=== PATIENT | male | born 1955 | race Caucasian/White ===

== ENCOUNTER 2021-04-18 10:52 | Outpatient (CLI) | payer MEDICARE, SELFPAY ==
[2021-04-18 12:47] LABS: Alanine Aminotransferase 11 U/L (0-41); Alkaline Phosphatase 71 IU/L (40-130); Anion Gap 10.1 (5-19); Aspartate Amino Transferase 14 U/L (0-40); Blood Urea Nitrogen 8 mg/dL (8-23); Calcium 8.8 mg/dL (8.5-10.5); Carbon Dioxide 27 mmol/L (22-29); Chloride 103 mmol/L (98-107); Cholesterol 161 mg/dL (0-200); Globulin 2.4 g/dL (1.3-4.6); Glomerular Filtration Rate 134.8 mL/min (90-130); Glucose 96 mg/dL (65-115); HDL Cholesterol 67 mg/dL (60-100); LDL Cholesterol Calculated 81 mg/dL (50-129); LDL HDL Ratio 1.21 RATIO (0.00-3.22); Osmolality Calculated 280 mOsm/kg (285-295); Potassium 4.1 mmol/L (3.5-5.1); Sodium 136 mmol/L (136-145); Total Bilirubin 0.6 mg/dL (0.15-1.2); Total Protein 6.4 g/dL (6.6-8.7); Triglycerides 63 mg/dL (0-150)
[2021-04-18 13:57] LABS: 25 Hydroxy Vitamin D 20 ng/mL (30-100)
== END 2021-04-18 10:53 | disposition home or self-care (01) ==
LOC: LAB 11:01
PROVIDERS: PCP Physician Assistant Medical; Visit Provider Physician Assistant Medical
DX: E55.9 Vitamin D deficiency, unspecified (principal); E78.5 Hyperlipidemia, unspecified; R35.1 Nocturia
CPT/HCPCS: 80053; 80061; 82306; 84153

== ENCOUNTER → 2021-05-07 16:14 | Outpatient (BNVA) | payer MEDICARE, SELFPAY | PROVIDERS: PCP Physician Assistant Medical; Visit Provider Urology | DX: R97.20 Elevated prostate specific antigen [PSA] (principal) | CPT/HCPCS: 84153 ==

== ENCOUNTER → 2021-05-22 15:04 | Outpatient (BNVA) | payer MEDICARE, SELFPAY | PROVIDERS: PCP Physician Assistant Medical; Visit Provider Urology | DX: R97.20 Elevated prostate specific antigen [PSA] (principal) | CPT/HCPCS: 88305 ==

== ENCOUNTER → 2021-06-12 11:55 | Outpatient (BNVA) | payer MEDICARE, SELFPAY | PROVIDERS: PCP Physician Assistant Medical; Visit Provider Internal Medicine | DX: Z01.812 Encounter for preprocedural laboratory examination (principal); R19.5 Other fecal abnormalities; Z20.822 Contact with and (suspected) exposure to COVID-19 | CPT/HCPCS: 87635 ==

== ENCOUNTER 2021-06-17 06:32 | Day surgery (SDC) | payer MEDICARE, SELFPAY ==
[2021-06-13 14:04] VITALS: BMI 22.5
[2021-06-17] MEDS: sodium chloride 0.9% 1,000 ML 30 ML IV (07:03)
[2021-06-17 07:06] VITALS: BP 138/85; PULSE 74; RESP 18; TEMP 36.9; O2SAT 97
--- NOTE | 2021-06-17 07:14 | ANES.PREANE2 ---
Pre-Anesthetic Assessment Pre-Anesthetic Assessment: Height/Weight: Height 1.73 m Weight 67.132 kg Temp Pulse Resp BP Pulse Ox 98.5 F 74 18 138/85 97 06/17/21 07:06 06/17/21 07:06 06/17/21 07:06 06/17/21 07:06 06/17/21 07:06 Preop Diagnosis: Positive cologuard Proposed Procedure: Operation Date: 06/17/21 07:30 Proposed Procedures p Colonoscopy 74423 R19.5(Not Applicable) - Roland Candelaria MD Familial anesthetic complications: none Was Beta Liz taken within 24 hours: N/A Was Clonidine taken within 24 hours: N/A Last intake: Intake Last Liquid Date 06/16/21 Last Liquid Time 23:15 Last Solid Date 06/15/21 Last Solid Time 23:30 Social: Social History: Alcohol (6pk day) and No tobacco Exam: Pre-Anes Outpt Exam: alert, oriented x 3, clear to auscultation bilaterally and regular rate & rhythm Airway: Submandibular: WNL Cervical ROM: WNL MP: 2 Dentition: Full Pulmonary: Pulmonary: Sleep apnea (CPAP) CV/HEM: CV/HEM: None reported : : None reported Hepatic: Hepatic: None reported GI: GI: None reported Metabolic: Metabolic: None reported Musc/skel: Musc/skel: Lower Back Pain and OA/DJD Neuropsych: Neuropsych: None reported Anesthetic Plan: ASA status: 2 Anesthesia: MAC Meds/Allergies Current Medications: Current Medications Generic Name Dose Route Start Last Admin Trade Name Freq PRN Reason Stop Dose Admin Sodium Chloride 1,000 mls @ 30 ml s/hr 06/17/21 06:45 06/17/21 07:03 Sodium Chloride 0.9% IV 30 mls/hr .Q24H ANDRADE Administration PFSH Anesthesia PFSH: Medical History Abnormal prostate exam Depression Elevated PSA Erectile dysfunction Hyperlipidemia Venous insufficiency Surgical History Hx of tonsillectomy Family History Mother , IN HER MID 60'S HEART ATTACK CAD (coronary artery disease) FATHER IN HIS MID 60'S NATURAL Social History Smoking and tobacco status: former smoker Alcohol intake: current Alcohol intake frequency: few times a week Marital status: Current occupational status: retired Data Anesthesia Cardiac Studies: No Data to Display
--- NOTE | 2021-06-17 07:16 | P.HP_ITS ---
Same Day Surgery H&P Indication for Procedure/HPI DATE OF PROCEDURE: June 17, 2021 CHIEF COMPLAINT/INDICATIONFOR SURGICAL PROCEDURE: Positive Cologuard PREOP DIAGNOSIS: Positive cologuard PLANNED PROCEDRUE: Operation Date: 06/17/21 07:30 Proposed Procedures p Colonoscopy 49538 R19.5(Not Applicable) - Roland Candelaria MD Medications/Allergies* Home Medications Medication Instructions Recorded Confirmed Type bupropion HCl 150 mg tablet,12 hr 150 mg PO QAM 04/30/21 06/13/21 History sustained-release fluticasone propionate 50 2 spray INTRANASAL DAILY 04/30/21 06/13/21 History mcg/actuation nasal spray,suspension tadalafil 5 mg tablet 5 mg PO DAILY 04/30/21 06/13/21 History Allergies/Adverse Reactions Allergy/AdvReac Type Severity Reaction Status Date / Time No Known Allergies Allergy Verified 06/10/21 09:13 Current Medications: Generic Name Dose Route Start Last Admin Trade Name Freq PRN Reason Stop Dose Admin Sodium Chloride 1,000 mls @ 30 mls/hr 06/17/21 06:45 06/17/21 07:03 Sodium Chloride 0.9% IV 30 mls/hr .Q24H ANDRADE Administration Pertinent History/Comorbid Conditions* Medical History (Updated 06/10/21 @ 09:45 by Rolnad Candelaria MD) Abnormal prostate exam Depression Elevated PSA Erectile dysfunction Hyperlipidemia Venous insufficiency Surgical History (Updated 05/07/21 @ 16:55 by León Francis MD) Hx of tonsillectomy Family History (Updated 05/07/21 @ 15:30 by DOLLY Bloom) Mother, IN HER MID 60'S HEART ATTACK CAD (coronary artery disease) Mother FATHER IN HIS MID 60'S NATURAL Social History Smoking and tobacco status: former smoker Alcohol intake: current Alcohol intake frequency: few times a week Marital status: Current occupational status: retired Pertinent Exam Findings alert, oriented x 3, clear to auscultation bilaterally, regular rate & rhythm, operative site marked and procedure specific exam findings Recommendations Surgery/Procedure today Coding Level of Care Code 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
[2021-06-17 08:03] VITALS: BP 97/61; PULSE 70; RESP 16; TEMP 36.6; O2SAT 99
[2021-06-17 08:11] VITALS: BP 112/71; PULSE 70; RESP 18; O2SAT 98
== END 2021-06-17 08:43 | disposition home or self-care (01) ==
PROVIDERS: PCP Physician Assistant Medical; Visit Provider Internal Medicine
PROC: 0DJD8ZZ Inspection of Lower Intestinal Tract, Via Natural or Artificial Opening Endoscopic (ICD-10-PCS; CPT 45378; principal; 2021-06-17 07:30)
DX: R19.5 Other fecal abnormalities (principal); G47.30 Sleep apnea, unspecified; Z87.891 Personal history of nicotine dependence
CPT/HCPCS: 45378; 96360; J2704; J7030

== ENCOUNTER 2021-06-25 07:31 | Outpatient (CLI) | payer MEDICARE, SELFPAY ==
--- NOTE | 2021-06-25 07:38 | CT_ITS ---
WS: [id number] CT ABDOMEN PELVIS TECHNIQUE: Noncontrast CT of the abdomen and contrast-enhanced CT of the abdomen and pelvis with paris nal and sagittal reformatted images. CLINICAL INFORMATION: PROSTATE CANCER COMPARISON: None. DLP: 1278.[address] scans at [facility] use at least one of these dose optimization techniques: automated e xposure control; mA and/or kV adjustment per patient size (includes targeted exams where dose is matc hed to clinical indication); or iterative reconstruction. FINDINGS: Lung bases are well aerated. Mild diffuse fatty infiltration of the liver. Normal portal vein and spl enic vein. Gallbladder is contracted. Adrenal glands are normal. Normal renal parenchymal enhancement . No hydronephrosis. Normal GE junction. Normal duodenal C-loop. Normal spleen. Normal caliber abdomi nal aorta with mild aortic calcification. Sigmoid diverticulosis. No evidence of acute diverticulitis. Urine distended bladder with mild wall thickening. Heterogeneous enhancing multinodular prostate rosanna uring 2.5 x 3.5 CM. Mild thickening of the seminal vesicles. No abdominal lymphadenopathy. No pelvic or inguinal lymphadenopathy. Normal ureteral excretion on the delayed images. Small cystocele. CT/CT abdomen pelvis wo/w [id number] IMPRESSION: 1. No evidence of metastatic disease in the abdomen or pelvis. 2. No abdominal pelvic or inguinal lymphadenopathy. 3. Heterogeneously enhancing prostate measuring 2.5 x 3.5 CM. Mild thickening of the seminal vesicles. No pelvic lymphadenopathy. 4. Mild diffuse fatty infiltration liver. 5. Urine distended bladder with mild wall thickening. Small cystocele. 6. Normal renal parenchymal enhancement and excretion.
--- NOTE | 2021-06-25 07:38 | NM_ITS ---
WS: [id number] NUCLEAR MEDICINE BONE SCAN Radiopharmaceutical: 24.6 Tc-99m MDP mCi IV Injection site: Right antecubital Postinjection imaging delay: 1 hr CLINICAL INFORMATION: PROSTATE CANCER COMPARISON: None. FINDINGS: Bone lesions: There are no osseous lesions suspicious for metastatic disease. Soft tissue contours: Normal. Kidneys: Normal. Other findings: Degenerative type uptake right AC joint, left tibial tuberosity, and both ankles. NM/NM bone scan whole body* [id number] IMPRESSION: No evidence of osseous metastatic disease.
[2021-06-25 08:22] LABS: Blood Urea Nitrogen 8 mg/dL (8-23); Glomerular Filtration Rate 166.4 mL/min (90-130)
[2021-06-25] MEDS: iohexol 300 mg/mL 100 mL Btl IV (08:50)
== END 2021-06-25 07:32 | disposition home or self-care (01) ==
LOC: RAD 07:34
PROVIDERS: PCP Physician Assistant Medical; Visit Provider Urology
DX: C61 Malignant neoplasm of prostate (principal); K76.0 Fatty (change of) liver, not elsewhere classified
CPT/HCPCS: 36415; 74178; 78306; 82565; 84520; A9561

== ENCOUNTER → 2021-07-09 13:28 | Outpatient (BNVA) | payer MEDICARE, SELFPAY | PROVIDERS: PCP Physician Assistant Medical; Referring Provider Physician Assistant Medical; Visit Provider Podiatrist Foot & Ankle Surgery | DX: M19.072 Primary osteoarthritis, left ankle and foot (principal); M19.071 Primary osteoarthritis, right ankle and foot; M79.671 Pain in right foot; M79.672 Pain in left foot | CPT/HCPCS: 73630 ==

== ENCOUNTER 2021-07-11 12:59 | Outpatient (CLI) | payer MEDICARE, SELFPAY ==
--- NOTE | 2021-07-11 14:43 | N.ONRAD NP_ITS ---
Radiation Oncology Consultation Patient Name: Seferino De La Cruz Date of : 1955 Date of Service: 07/11/2021 Attending Physician: Deepak Varghese M.D. Seferino De La Cruz Jr. was seen in consultation this afternoon at the request of León Francis M.D. for consideration of prostate radiotherapy for the management of a recently diagnosed high-risk prostate cancer. He initially was identified to have an elevated PSA level (22.3 ng/mL) in March 2021. A digital rectal exam performed by León Francis M.D. described induration of the right lobe of the prostate. A TRUS biopsy of the prostate gland performed on May 22, 2021 identified a 20 cc prostate gland with generalized hypoechoic areas within the right lateral aspect of the prostate. Pathology diagnosed (personally reviewed in [facility]) an adenocarcinoma with a [place]???s Score of 3+4=7 (Grade Group 2) involving 90% of the biopsy core from the right base and a Luiz???s Score of 6 (Grade Group 1) involving 80% of the specimen from the right lateral base and 40% of the right mid sample. Perineural invasion was identified in the right base. A nuclear bone scintigraphy scan and abdominopelvic CT scan (independently reviewed in [facility]) did not demonstrate metastatic disease. The patient was evaluated for radiotherapy treatment options. I discussed the patient's AJCC clinical stage IIIA (T2bN0) high-risk prostate cancer and the National Comprehensive Cancer Network Guidelines recommending surgery or androgen deprivation therapy and external beam radiotherapy with or without brachytherapy. These recommendations were based upon several If the patient elects radiotherapy, I would endorse a 7/2-week course of radiotherapy and ADT as attested by the RTOG 9202, EORTC 70237, and DART/GICOR trials. The EORTC study demonstrated superior survival with long-term ADT. Subgroup analyses of the RTOG and DART/GICOR trials confirmed an overall survival advantage in high-risk patients. I reviewed the potential toxicities of pelvic radiotherapy. The patient's medical treatment plan was discussed with León Francis M.D. Signed by: Dr. Deepak Varghese 07/11/2021 2:41:45 PM
[2021-07-11 15:06] LABS: Basophils % 0.7 %; Eosinophils # 0.1 10^3/uL (0.0-0.8); Eosinophils % 1.3 %; Hematocrit 43.4 % (42.0-52.0); Hemoglobin 14.5 g/dL (11.7-16.6); Lymphocytes # 0.9 10^3/uL (0.8-4.8); Lymphocytes % 16.1 %; Mean Corpuscular HGB Conc 33.4 g/dL (30.0-36.0); Mean Corpuscular Hemoglobin 32.9 pg (28.0-34.0); Mean Corpuscular Volume 98.4 fl (80-94); Mean Platelet Volume 10.9 fL (7.4-10.4); Monocytes # 0.6 10^3/uL (0.2-0.9); Monocytes % 10.6 %; Neutrophils # 3.97 10^3/uL (1.8-7.7); Neutrophils % 71.1 %; Nucleated Red Blood Cells % 0 %; Platelet Count 197 10^3/cmm (130-400); Red Blood Count 4.41 10^6/uL (4.1-5.3); Red Cell Distribution Width 12.2 % (12.1-15.1); White Blood Count 5.6 10^3/uL (4.0-10.0)
[2021-07-11 15:41] LABS: Alanine Aminotransferase 12 U/L (0-41); Albumin Level 4.5 g/dL (3.5-5.2); Alkaline Phosphatase 79 IU/L (40-130); Aspartate Amino Transferase 16 U/L (0-40); Blood Urea Nitrogen 11 mg/dL (8-23); Calcium 8.7 mg/dL (8.5-10.5); Carbon Dioxide 24 mmol/L (22-29); Chloride 101 mmol/L (98-107); Globulin 2.1 g/dL (1.3-4.6); Glomerular Filtration Rate 166.4 mL/min (90-130); Glucose 92 mg/dL (65-115); Osmolality Calculated 283 mOsm/kg (285-295); Sodium 137 mmol/L (136-145); Testosterone Total 379.6 ng/dL (193-740); Total Bilirubin 0.7 mg/dL (0.15-1.2); Total Protein 6.6 g/dL (6.6-8.7)
[2021-07-11 15:43] LABS: Anion Gap 16.3 (5-19); Potassium 4.3 mmol/L (3.5-5.1)
== END 2021-07-11 13:00 | disposition home or self-care (01) ==
LOC: ONCMED 13:07
PROVIDERS: PCP Registered Nurse; Visit Provider Radiology Radiation Oncology
DX: C61 Malignant neoplasm of prostate (principal)
CPT/HCPCS: 36415; 80053; 84153; 84403; 85025; 99205

== ENCOUNTER → 2021-09-03 14:04 | Outpatient (BNVA) | payer MEDICARE, SELFPAY | PROVIDERS: PCP Registered Nurse; Visit Provider Urology | DX: R39.9 Unspecified symptoms and signs involving the genitourinary system (principal); C61 Malignant neoplasm of prostate | CPT/HCPCS: 81003 ==

== ENCOUNTER 2022-04-11 11:50 | Outpatient (CLI) | payer MEDICARE, SELFPAY ==
[2022-04-11 18:52] LABS: Adenovirus Not Detected (NOT DETECT); Chlamydia Pneumoniae Not Detected (NOT DETECT); Coronavirus 229E,HKU1,NL63,OC4 Not Detected (NOT DETECT); Human Metapneumovirus Not Detected (NOT DETECT); Human Rhinovirus/Enterovirus Not Detected (NOT DETECT); Influenza A Not Detected (NOT DETECT); Influenza A H1 Not Detected (NOT DETECT); Influenza A H1-2009 Not Detected (NOT DETECT); Influenza A H3 Not Detected (NOT DETECT); Influenza B Not Detected (NOT DETECT); Mycoplasma Pneumoniae Not Detected (NOT DETECT); Parainfluenza Virus Type 1 Not Detected (NOT DETECT); Parainfluenza Virus Type 2 Not Detected (NOT DETECT); Parainfluenza Virus Type 3 Not Detected (NOT DETECT); Parainfluenza Virus Type 4 Not Detected (NOT DETECT); Respiratory Syncytial Virus A Not Detected (NOT DETECT); Respiratory Syncytial Virus B Not Detected (NOT DETECT); SARS-COV-2 Not Detected (NOT DETECT)
== END 2022-04-11 11:51 | disposition home or self-care (01) ==
LOC: LAB 12:25
PROVIDERS: PCP Registered Nurse; Visit Provider Registered Nurse
DX: R09.89 Other specified symptoms and signs involving the circulatory and respiratory systems (principal)
CPT/HCPCS: 87635

== ENCOUNTER 2022-09-11 09:52 | Outpatient (CLI) | payer MEDICARE, SELFPAY ==
[2022-09-11 10:12] LABS: Basophils # 0.1 10^3/uL (0.0-0.1); Eosinophils # 0.3 10^3/uL (0.0-0.8); Eosinophils % 5.1 %; Hematocrit 41.6 % (42.0-52.0); Hemoglobin 13.4 g/dL (11.7-16.6); Lymphocytes # 1.3 10^3/uL (0.8-4.8); Mean Corpuscular HGB Conc 32.2 g/dL (30.0-36.0); Mean Corpuscular Hemoglobin 32.4 pg (28.0-34.0); Mean Corpuscular Volume 100.7 fl (80-94); Mean Platelet Volume 10.8 fL (7.4-10.4); Monocytes # 0.6 10^3/uL (0.2-0.9); Monocytes % 11.3 %; Neutrophils # 2.94 10^3/uL (1.8-7.7); Neutrophils % 57.4 %; Nucleated Red Blood Cells % 0 %; Platelet Count 154 10^3/cmm (130-400); Red Blood Count 4.13 10^6/uL (4.1-5.3); Red Cell Distribution Width 11.9 % (12.1-15.1); White Blood Count 5.1 10^3/uL (4.0-10.0)
[2022-09-11 10:35] LABS: Alanine Aminotransferase 13 U/L (0-41); Albumin Level 4.2 g/dL (3.5-5.2); Alkaline Phosphatase 71 U/L (40-130); Anion Gap 8.6 (5-19); Aspartate Amino Transferase 16 U/L (0-40); Blood Urea Nitrogen 9 mg/dL (8-23); Carbon Dioxide 30 mmol/L (22-29); Chloride 106 mmol/L (98-107); Chol HDL Ratio 2.64 mg/dL (1.0-5.00); Cholesterol 161 mg/dL (0-200); Globulin 2.1 g/dL (1.3-4.6); Glomerular Filtration Rate 112.1 mL/min (90-130); Glucose 99 mg/dL (65-115); HDL Cholesterol 61 mg/dL (60-100); LDL Cholesterol Calculated 89 mg/dL (50-129); LDL HDL Ratio 1.46 RATIO (0.00-3.22); Osmolality Calculated 289 mOsm/kg (285-295); Potassium 4.6 mmol/L (3.5-5.1); Sodium 140 mmol/L (136-145); Total Bilirubin 0.5 mg/dL (0.15-1.2); Total Protein 6.3 g/dL (6.6-8.7); Triglycerides 53 mg/dL (0-150)
[2022-09-11 10:51] LABS: 25 Hydroxy Vitamin D 8 ng/mL (30-100)
== END 2022-09-11 09:53 | disposition home or self-care (01) ==
LOC: LAB 09:55
PROVIDERS: PCP Registered Nurse; Visit Provider Nurse Practitioner Family
DX: E78.5 Hyperlipidemia, unspecified (principal); E55.9 Vitamin D deficiency, unspecified
CPT/HCPCS: 36415; 80053; 80061; 82306; 85025

== ENCOUNTER → 2023-03-10 14:01 | Outpatient (BNVA) | payer MEDICARE, SELFPAY | PROVIDERS: PCP Registered Nurse; Visit Provider Nurse Practitioner Family | DX: L57.0 Actinic keratosis (principal); Z85.828 Personal history of other malignant neoplasm of skin; L81.4 Other melanin hyperpigmentation; D22.5 Melanocytic nevi of trunk; L85.3 Xerosis cutis; L57.8 Other skin changes due to chronic exposure to nonionizing radiation; D48.5 Neoplasm of uncertain behavior of skin | CPT/HCPCS: 11102; 17000; 17003; 99213 ==

== ENCOUNTER 2023-07-17 12:08 | Outpatient (CLI) | payer MEDICARE, SELFPAY ==
--- NOTE | 2023-07-17 12:15 | USCV_ITS ---
Seferino De La Cruz Age: 67 Gender: M : 1955 Exam Date: 07/17/2023 12:43 Ordering Phys: Griselda Cooley Technologist: Mert Merritt [place] [facility] [place] chest pain BP: 120 / 70 HR: 74 Rhythm: Sinus Technical Quality: Adequate MEASUREMENTS (Male / Female) Normal Values 2D ECHO LVOT Diameter 2.2 cm LV Ejection Fraction MOD 2C 68.2 % LV Ejection Fraction 2C AL 68.4 % LA Diameter 3.0 cm LA Width 3.5 cm LA Height 3.4 cm RA Width 3.3 cm RA Height 4.4 cm Aorta at Sinotubular Diameter 3.1 cm IVC Diameter 1.7 cm M-MODE Aortic Annulus Diameter 2.7 cm LA Ao Ratio MM 1.1 MV E Point Septal Separation 0.4 cm DOPPLER AV Peak Velocity 106.0 cm/s LVOT Peak Velocity 103.0 cm/s AV Area Cont Eq vti 2.8 cm squared AV Area Cont Eq pk 3.7 cm squared MV Peak Velocity 89.0 cm/s MV Area PHT 3.4 cm squared Mitral E to A Ratio 0.9 MV E' Velocity 28.0 cm/s Mitral E to MV E' Ratio 4.5 Mitral E to LV E' Lateral Ratio 3.8 Mitral E to LV E' Septal Ratio 5.7 TR Peak Velocity 181.4 cm/s TR Peak Gradient 13.2 mmHg TR Mean Velocity 131.8 cm/s TR Mean Gradient 7.5 mmHg TR Velocity Time Integral 36.8 cm Right Atrial Pressure 3.0 mmHg Pulmonary Artery Systolic Pressu 16.2 mmHg PV Peak Velocity 107.0 cm/s RV Acceleration Time 0.1 s RV Ejection Time 0.3 s RV AcT/ET 0.5 FINDINGS Left Ventricle Limited views. Parasternal views are adequate however the apical and subcostal views are poor. Probably normal left ventricular function and size. Ejection fraction about 55 to 60%. Grade 1 diastolic dysfunction. Right Ventricle Normal right ventricular size and systolic function. Normal right ventricular systolic pressure. Right Atrium The right atrium is normal in size. Left Atrium The left atrium is normal in size. Mitral Valve Structurally normal mitral valve. Mild mitral valve regurgitation. Aortic Valve Structurally normal aortic valve without significant sclerosis or stenosis. There is no aortic regurgitation. Tricuspid Valve Tricuspid valve not well visualized. Pulmonic Valve Pulmonic valve not well visualized. Mild pulmonary valve regurgitation. Pericardium Normal pericardium without effusion. Aorta Proximal aorta dilation 3.54 cm IVC Inferior vena cava not visualized. CONCLUSIONS Limited views. Parasternal views are adequate however the apical and subcostal views are poor. Probably normal left ventricular function and size. Ejection fraction about 55 to 60%. Grade 1 diastolic dysfunction. Structurally normal mitral valve. Mild mitral valve regurgitation. There are no prior echocardiogram studies to compare. Dr. Uli Dubon MD (Electronically Signed) Final Date: 17 July 2023 13:54 S
== END 2023-07-17 12:09 | disposition home or self-care (01) ==
LOC: RAD 12:08
PROVIDERS: PCP Registered Nurse; Visit Provider Registered Nurse
DX: R07.9 Chest pain, unspecified (principal); I51.89 Other ill-defined heart diseases; I34.0 Nonrheumatic mitral (valve) insufficiency
CPT/HCPCS: 93306

== ENCOUNTER → 2023-09-14 14:46 | Outpatient (BNVA) | payer MEDICARE, SELFPAY | PROVIDERS: PCP Registered Nurse; Visit Provider Nurse Practitioner Family | DX: L57.0 Actinic keratosis (principal); D22.5 Melanocytic nevi of trunk; L81.4 Other melanin hyperpigmentation; L85.3 Xerosis cutis; Z85.828 Personal history of other malignant neoplasm of skin; L57.8 Other skin changes due to chronic exposure to nonionizing radiation; L82.1 Other seborrheic keratosis | CPT/HCPCS: 17000; 99213 ==

== ENCOUNTER → 2024-09-13 13:27 | Outpatient (BNVA) | payer MEDICARE, SELFPAY | PROVIDERS: PCP Registered Nurse; Visit Provider Nurse Practitioner Family | DX: D22.5 Melanocytic nevi of trunk (principal); L81.4 Other melanin hyperpigmentation; L57.8 Other skin changes due to chronic exposure to nonionizing radiation; L82.1 Other seborrheic keratosis; Z08 Encounter for follow-up examination after completed treatment for malignant neoplasm; Z85.828 Personal history of other malignant neoplasm of skin; L57.0 Actinic keratosis | CPT/HCPCS: 17000; 99213 ==

== ENCOUNTER 2024-12-22 09:02 | Outpatient (CLI) | payer MEDICARE, SELFPAY ==
--- NOTE | 2024-12-22 09:06 | USCV_ITS ---
Seferino De La Cruz Age: 69 Gender: M : 1955 Exam Date: 12/22/2024 09:26 Ordering Phys: Griselda Cooley Technologist: MANNIE [place] [facility] [place]: Diastolic Dysfunction BP: 135 / 75 HR: 70 Rhythm: Sinus Technical Quality: Adequate MEASUREMENTS (Male / Female) Normal Values 2D ECHO LV Diastolic Diameter PLAX 4.2 cm 4.2 - 5.9 / 3.9 - 5.3 cm IVS Diastolic Thickness 1.0 cm 0.6 - 1.0 / 0.6 - 0.9 cm IVS Systolic Thickness 1.7 cm LVPW Diastolic Thickness 0.9 cm 0.6 - 1.0 / 0.6 - 0.9 cm LVPW Systolic Thickness 1.5 cm LVOT Diameter 2.1 cm LV Ejection Fraction 2D Teich 61.6 % LV Ejection Fraction MOD 4C 68.8 % LV Ejection Fraction MOD 2C 42.2 % LV Ejection Fraction 2C AL 49.0 % LA Diameter 2.6 cm RA Systolic Volume 4C AL 53.5 ml RA Systolic Volume 4C MOD 51.7 ml LA Sys Volume AL 32.1 cm cubed LA Sys Volume Index AL 18.6 cm cubed/m squared Aorta at Sinotubular Diameter 2.9 cm IVC Diameter 1.9 cm M-MODE LA Ao Ratio MM 0.9 AV Cusp Separation MM 1.3 cm DOPPLER AV Peak Velocity 99.0 cm/s LVOT Peak Velocity 86.0 cm/s AV Area Cont Eq vti 2.7 cm squared AV Area Cont Eq pk 2.9 cm squared MV Peak Velocity 78.0 cm/s MV Area PHT 4.1 cm squared Mitral E to A Ratio 0.8 TV Peak Velocity 196.0 cm/s TR Peak Velocity 224.0 cm/s TR Peak Gradient 20.1 mmHg TV Peak E Velocity 69.0 cm/s PV Peak Velocity 101.0 cm/s FINDINGS Left Ventricle Ventricle is normal in size. LV systolic function is normal with EF of 55 to 60%. No regional wall motion abnormalities are seen. Grade 1 diastolic dysfunction Right Ventricle Normal in size and function Right Atrium Normal in size Left Atrium Normal in size Mitral Valve Structurally normal mitral valve. Mild mitral regurgitation Aortic Valve Grossly normal. No significant stenosis or regurgitation Tricuspid Valve Mild tricuspid regurgitation. Pulmonary artery systolic pressure is normal Pulmonic Valve Mild pulmonic regurgitation Pericardium Normal Aorta Normal in size IVC Appears to be normal CONCLUSIONS LV systolic function is normal with EF of 55-60%. Grade 1 diastolic dysfunction. Mild mitral regurgitation. Mild tricuspid regurgitation Mild pulmonic regurgitation Compared to prior echocardiogram from 2023, no significant changes are seen Jamari Upton MD (Electronically Signed) Final Date: 06 January 2025 11:39 S
== END 2024-12-22 09:03 | disposition home or self-care (01) ==
LOC: RAD 09:03
PROVIDERS: PCP Registered Nurse; Visit Provider Registered Nurse
DX: I51.89 Other ill-defined heart diseases (principal); I34.0 Nonrheumatic mitral (valve) insufficiency; I37.1 Nonrheumatic pulmonary valve insufficiency; R93.1 Abnormal findings on diagnostic imaging of heart and coronary circulation
CPT/HCPCS: 93306